=== PATIENT | male | born 1950 | race Caucasian/White ===

== ENCOUNTER 2017-03-08 13:38 | Emergency (ER) | payer MEDICARE, OTHER ==
[2017-03-08 13:26] LABS: BASOPHILS 0.2 %; BASOPHILS ABSOLUTE 0.02 10/3/uL (0.0-0.16); EOSINOPHILS 0.5 %; EOSINOPHILS ABSOLUTE 0.04 10/3/uL (0.0-0.53); HEMATOCRIT 50.9 % (40.0-51.0); HEMOGLOBIN 17.6 g/dL (13.6-17.8); IMMATURE GRANULOCYTES 0.2 %; IMMATURE GRANULOCYTES ABSOLUTE 0.02 10/3/uL (0.0-0.11); LYMPHOCYTES 13.7 %; LYMPHOCYTES ABSOLUTE 1.13 10/3/uL (0.67-4.30); MANUAL DIFF NO %; MEAN CORPUS HGB CONC 34.6 g/dL (32.0-36.0); MEAN CORPUSCULAR HEMOGLOB 32.1 pg (26.0-34.0); MEAN CORPUSCULAR VOLUME 92.7 fL (80-100); MEAN PLATELET VOLUME 10.8 fL (9.2-13.0); MONOCYTES 10.4 %; MONOCYTES ABSOLUTE 0.86 10/3/uL (0.21-1.20); NEUTROPHILS ABSOLUTE 6.19 10/3/uL (2.02-8.40); PLATELET COUNT 290 10/3/uL (150-400); RBC DISTRIBUTION WIDTH 13.6 % (12.0-16.0); RED CELL COUNT 5.49 10/6/uL (4.7-6.1); WHITE BLOOD CELLS 8.3 10/3/uL (4.5-10.5)
[~2017-03-08 13:38] MED LIST: ASAB PO; CO Q-10200 MG PO; CRESTOR5 MG PO; EXFORGE1 TA1 PO; GLUCOTROL5 PO; LOVAZA1 GM PO; LOZOLTAB PO; MULTIVITAMI1 PO; NOVOPEN SC; PRILOSEC40 MG PO; TRULICITY1.5 MG/0.5 SQ
[2017-03-08 13:40] LABS: A/G RATIO 0.7 (0.7-1.9); ALBUMIN 2.8 G/DL (3.5-5.0); ALKALINE PHOSPHATASE 92 U/L (45-117); BUN (BLOOD UREA NITROGEN) 15 MG/DL (6-23); CALCIUM, SERUM 8.4 MG/DL (8.5-10.4); CHLORIDE, SERUM 106 MMOL/L (96-112); CO2 (CARBON DIOXIDE) 30 MMOL/L (24-34); CREATININE 1.24 MG/DL (0.70-1.30); GFR AFRICAN AMERICAN 68 ML/MIN (>=60); GFR NON AFRICAN AMERICAN 59 ML/MIN (>=60); GLOBULIN 4.3 G/DL (2.5-4.1); GLUCOSE, SERUM 134 MG/DL (60-99); POTASSIUM, SERUM 4.4 MMOL/L (3.5-5.3); SGOT(AST) 25 U/L (5-40); SGPT(ALT) 21 U/L (5-65); SODIUM, SERUM 140 MMOL/L (135-148); TOTAL BILIRUBIN 0.4 MG/DL (0-1.2); TOTAL PROTEIN 7.1 G/DL (6.0-8.5)
[2017-03-08 13:59] LABS: TROPONIN I 0.03 NG/ML (<0.05)
[2017-03-08 16:22] LABS: ASCORBIC ACID (UR NOT ORDER) NEG (NEG); BILIRUBIN, URINE NEGATIVE (NEG); ER URINALYSIS TAT 0 Hrs 09 Mins; KETONE, URINE NEGATIVE (NEG); LEUKOCYTE ESTERASE(NOT OR NEG (NEG); NITRITE (URINE) NEG (NEG); WBC (NOT ORDERED) (RFLEX) 1 (0-5)
[2017-03-16] MEDS ORDERED: ADVIL PO (17:57)
[2017-03-16] MEDS ORDERED: TRESIBA FL200 UNIT/1 SC (18:04)
[2017-03-16] MEDS ORDERED: AXIRON T (18:05)
[2017-03-16] MEDS ORDERED: SYN.05 PO (18:06)
[2017-03-16] MEDS ORDERED: ETODOLAC400 MG PO (18:07)
[2017-03-16] MEDS ORDERED: MULTIPLE VIT PO (18:09)
[2017-03-16] MEDS ORDERED: CAT1 PO (18:09)
[2017-03-16] MEDS ORDERED: [UNRECOGNIZED DRUG - OTHER] IJ (18:29)
== END 2017-03-08 16:43 | disposition home or self-care (01) ==
LOC: ER 13:38
PROVIDERS: Physician Assistant
DX: R10.12 Left upper quadrant pain (principal); T50.905A Adverse effect of unspecified drugs, medicaments and biological substances, initial encounter; I10 Essential (primary) hypertension; K21.9 Gastro-esophageal reflux disease without esophagitis; E03.9 Hypothyroidism, unspecified; E11.9 Type 2 diabetes mellitus without complications; E78.00 Pure hypercholesterolemia, unspecified; Z88.8 Allergy status to other drugs, medicaments and biological substances; Z79.82 Long term (current) use of aspirin; Z79.4 Long term (current) use of insulin; Z79.899 Other long term (current) drug therapy
CPT/HCPCS: 74176; 80053; 81001; 82150; 82962; 83690; 84484; 85025; 93005; 96372; 99285

== ENCOUNTER 2017-03-17 08:44 | Day surgery (SDC) | payer MEDICARE, OTHER ==
--- NOTE | ~2017-03-17 | EGD ---
EGD REPORT [facility] [address] [address] NAME: EFRAIN SU : 46 STATUS : REG [facility]#: [id number] AGE: 67 ADM/REG DATE : 03/17/17 MR#: [id number] REPORT SERV DATE: 03/17/17 DICTATED BY: JUVENAL FAJARDO DATE: 03/17/17 REPORT STATUS : Draft TRANSCRIBED BY: [facility] DATE: 03/17/17 Endoscopy Center Patient Name: Efrain Su Date of : 1950 Attending MD: JUVENAL FAJARDO MD Procedure Date No Time: 03/17/2017 Procedure: Upper GI endoscopy Indications: Epigastric abdominal pain, Abdominal pain in the left upper quadrant; Omeprazole 40mg daily. Patient Profile: Informed consent was obtained from the patient by me prior to the procedure. Risks, benefits, and alternatives were discussed including the risk of bleeding, perforation, infection, reaction to medicine, missed lesion, and cardiopulmonary complications. Referring MD: VERN YANEZ Medicines: Monitored Anesthesia Care Complications: No immediate complications. Procedure: Pre-Anesthesia Assessment: - ASA Grade Assessment: III - A patient with severe systemic disease. After obtaining informed consent, the endoscope was passed under direct vision. Throughout the procedure, the patient's blood pressure, pulse, and oxygen saturations were monitored continuously. The GIF [id number] was introduced through the mouth, and advanced to the third part of duodenum. The endoscope was withdrawn with careful examination all mucosal surfaces including retroflexion stomach. The upper GI endoscopy was accomplished without difficulty. The patient tolerated the procedure well. Findings: The first part of the duodenum, 2nd part of the duodenum and 3rd part of the duodenum were normal. Biopsies were taken with a cold forceps for histology. The entire examined stomach and gastric fundus (on retroflexion) were normal. The examined esophagus was normal. The esophagus and gastroesophageal junction were examined with white light. There was no visual evidence of Coy's esophagus. A small hiatus hernia was present. Impression: - Normal first part of the duodenum, 2nd part of the duodenum and 3rd part of the duodenum. Biopsied. - Normal stomach and gastric fundus. EGD REPORT [address] [address] NAME: EFRAIN SU : [birth year] STATUS : REG [facility] [place] PAT#: [id number] AGE: 67 ADM/REG DATE : 03/17/17 MR#: [id number] REPORT SERV DATE: 03/17/17 DICTATED BY: JUVENAL FAJARDO DATE: 03/17/17 REPORT STATUS : Draft TRANSCRIBED BY: [employer] DATE: 03/17/17 - Normal esophagus. - There is no endoscopic evidence of Coy's esophagus. - Hiatus hernia. Recommendation: - Patient has a contact number available for emergencies. The signs and symptoms of potential delayed complications were discussed with the patient. Return to normal activities tomorrow. Written discharge instructions were provided to the patient. - Regular diet. - Continue present medications. - Await pathology results. - Schd 4hr GET re: early satiety, GERD. - Try dicyclomine prn spasm LUQ. - F/u office 2-3 months. Procedure Code(s): --- Professional --- 97192, Esophagogastroduodenoscopy, flexible, transoral; with biopsy, single or multiple Diagnosis Code(s): --- Professional --- K44.9, Diaphragmatic hernia without obstruction or gangrene R10.13, Epigastric pain R10.12, Left upper quadrant pain CPT copyright 2013 [employer]. All rights reserved. The codes documented in this report are preliminary and upon orthopedic coder review may be revised to meet current compliance requirements. JUVENAL FAJARDO MD 03/17/2017 10:27 AM This report has been signed electronically. Number of Addenda: 0 Note Initiated On: 03/17/2017 10:01 AM Scope Withdrawal Time 0 hours 0 minutes 0 seconds [id number] [id number]
[~2017-03-17 08:44] MED LIST changes: +ADVIL PO; +AXIRON T; +CAT1 PO; +ETODOLAC400 MG PO; +MULTIPLE VIT PO; +SYN.05 PO; +TRESIBA FL200 UNIT/1 SC; +[UNRECOGNIZED DRUG - OTHER] IJ
== END 2017-03-17 23:59 | disposition home health service (06) ==
LOC: DMU 08:44
PROVIDERS: Internal Medicine Gastroenterology
PROC: 0DB98ZX Excision of Duodenum, Via Natural or Artificial Opening Endoscopic, Diagnostic (ICD-10-PCS; principal; 2017-03-17 10:00)
DX: K44.9 Diaphragmatic hernia without obstruction or gangrene (principal); K21.9 Gastro-esophageal reflux disease without esophagitis; I10 Essential (primary) hypertension; E11.9 Type 2 diabetes mellitus without complications; E78.00 Pure hypercholesterolemia, unspecified; E03.9 Hypothyroidism, unspecified; Z79.899 Other long term (current) drug therapy; Z88.8 Allergy status to other drugs, medicaments and biological substances; Z86.010 Personal history of colon polyps; Z98.890 Other specified postprocedural states
CPT/HCPCS: 82962; 88305